=== PATIENT | female | born 1970 | race Caucasian/White ===

== ENCOUNTER 2024-01-27 23:18 | Emergency (ER) | payer OTHER ==
[~2024-01-27] VITALS: Ht 167.6 cm; Wt 86.2 kg
[~2024-01-27 23:18] MED LIST: ASPIRIN CHEWABL81 MG PO; LANTUS100 U/ML SQ
[2024-01-27] MEDS ORDERED: Ondansetron Hydrochloride 4 MG/2 ML VIAL IV ONE (23:35)
[2024-01-27] MEDS ORDERED: SODIUM CHLORIDE 0.9% 1,000 ML IV ONE (23:35)
[2024-01-27 23:53] LABS: HEMATOCRIT 39.1 % (37.0-47.0); MEAN CELL VOLUME 91.6 fl (81.0-99.0); MEAN CORPUSCULAR HGB 29.7 pg (27.0-31.0); MEAN CORPUSCULAR HGB CONC 32.5 g/dl (33.0-37.0); MEAN PLATELET VOLUME 11.7 fl (9.6-12.3); PLATELET COUNT AUTOMATED 467 10*3/uL (130-400); RED BLOOD COUNT 4.27 10*6/uL (4.10-5.10); RED CELL DISTRI WIDTH 12.3 % (0-14.5)
[2024-01-27 23:54] LABS: MANUAL DIFF REFLEX YES
[2024-01-28 00:22] LABS: PLATELET SUFFICIENCY HIGH (NORMAL); TOTAL CELLS COUNTED 100 #CELLS
[2024-01-28] MEDS ORDERED: HYDROmorphONE Hydrochloride 1 MG/ML SYR IV ONE ×3 (00:25→04:00)
[2024-01-28 01:06] LABS: CHLORIDE 97 mmol/L (98-107); POTASSIUM 3.6 mmol/L (3.4-5.1); SGPT/ALT 201 U/L (5-49); TOTAL PROTEIN 7.3 gm/dL (6.0-8.0)
[2024-01-28 01:15] LABS: ALKALINE PHOSPHATASE > 1000 U/L (46-116); LIPASE > 700 U/L (12-53)
[2024-01-28] MEDS ORDERED: Piperacillin Sodium/Tazobact 50 ML IV ONE (01:30)
[2024-01-28] MEDS ORDERED: SODIUM CHLORIDE 0.9% 1,000 ML IV ONE (01:30)
[2024-01-28] MEDS ORDERED: INSULIN REGULAR, HUMAN 1 UNIT/0.01 ML IV ONE (01:30)
[2024-01-28 02:10] LABS: BUN 16 mg/dl (9-23)
[2024-01-28] MEDS ORDERED: Ondansetron Hydrochloride 4 MG/2 ML VIAL IV ONE ×2 (04:00→05:05)
== END 2024-01-28 07:54 | disposition short-term general hospital (02) ==
LOC: ED 23:18
PROVIDERS: Internal Medicine
DX: A41.9 Sepsis, unspecified organism (principal); K80.50 Calculus of bile duct without cholangitis or cholecystitis without obstruction; R79.89 Other specified abnormal findings of blood chemistry; E78.41 Elevated Lipoprotein(a); D72.829 Elevated white blood cell count, unspecified; E44.0 Moderate protein-calorie malnutrition; E11.9 Type 2 diabetes mellitus without complications; Z68.1 Body mass index [BMI] 19.9 or less, adult; Z98.890 Other specified postprocedural states